=== PATIENT | male | born 1950 | race Caucasian/White ===

== ENCOUNTER 2024-04-23 04:59 | Inpatient (IN) ==
[2024-04-23] MEDS: Albuterol/Ipratropium NEB.SOL (2.5/0.5 MG) 3 ML NEB.SOLN INH ONE (05:08)
[2024-04-23] MEDS ORDERED: Vancomycin 1,000 MG in NS 0.9% 250 ml 250 ML IVPB ONE (05:19)
[2024-04-23] MEDS ORDERED: Acetaminophen IV 1 GM/100ML 1,000 MG/100 ML BAG IV ONE (05:19)
[2024-04-23 05:23] LABS: Hemoglobin 11.7 g/dL (13.2-16.3); Mean Corpuscular Hemoglobin 28.5 pg (27-33); Mean Corpuscular Hgb Conc 32.6 g/dL (31-36); Mean Corpuscular Volume 87.4 fL (80-97); Mean Platelet Volume 8.3 fL (7.5-11.2); Platelet Count 391 10^3/uL (150-450); Red Blood Count 4.12 10^6/uL (4.06-5.63); Red Cell Distribution Width 15.7 % (12-17); White Blood Count 12.8 10^3/uL (3.6-10.2)
[2024-04-23 05:26] LABS: PCO2 Arterial 74 mmHg (35-45)
[2024-04-23 05:28] LABS: Activated Partial Thrombo Time 33.5 seconds (26.0-38.0); INR 1.13 (0.85-1.14)
[2024-04-23] MEDS: Acetaminophen IV 1 GM/100ML 1,000 MG/100 ML BAG IV ONE (05:29)
[2024-04-23] MEDS: Dexamethasone IV 4 MG/ML VIAL 1 ml VIAL IV SLOW PU ONE (05:40)
[2024-04-23] MEDS: Piperacillin/Tazobac 3.375 BAG 3.375 GM/100 ML BAG IV ONE (05:40)
[2024-04-23] MEDS: Lactated Ringers 1000 ml BAG 1,000 ML IV ONE (05:41)
[2024-04-23] MEDS: Vancomycin 1,250 MG in NS 0.9% 250 ml 250 ML IVPB ONE (05:56)
[2024-04-23] MEDS ORDERED: Vancomycin per Pharmacy 1 EA NOTE FOLLOW UP SCH (06:00)
[2024-04-23] MEDS ORDERED: Zosyn per Pharmacy NOTE FOLLOW UP SCH (06:00)
[2024-04-23 06:01] LABS: Albumin 4.3 g/dL (3.5-5.7); Albumin/Globulin Ratio 1.9 (1-3); C Reactive Protein 25.62 mg/L (<8.01); Calcium 9.5 mg/dL (8.6-10.3); Creatinine, Serum 1.12 mg/dL (0.67-1.17); Globulin 2.3 g/dL (2-4); Potassium 4.6 mmol/L (3.5-5.0); Total Bilirubin 0.3 mg/dL (0.2-1.0); Total Protein 6.6 g/dL (6.4-8.9); eGFR CKD-EPI 68.5 (>60)
[2024-04-23] MEDS ORDERED: Dextrose 50% Syringe 50 ml 25 GM/50 ML SYRINGE IV PUSH PRN (06:14)
[2024-04-23 06:35] LABS: HDL Cholesterol 79.8 mg/dL; Magnesium 1.8 mg/dL (1.9-2.7); Phosphorus 2.8 mg/dL (2.5-5.0)
[2024-04-23] MEDS: Albuterol 2.5mg/3 ml (0.083%) NEB.SOLN INH ONE (06:40)
[2024-04-23 06:54] LABS: PCO2 Arterial 64 mmHg (35-45); PO2 Arterial 227 mmHg (80-100)
[2024-04-23] MEDS: Magnesium Sulfate 2 gm BAG 2 GM/50 ML BAG IVPB ONE (06:58)
[2024-04-23 07:01] LABS: ABS Eosinophils 0.3 10^3/uL (0.0-0.5); ABS Lymphocytes 0.5 10^3/uL (1.0-4.8); ABS Monocytes 1.1 10^3/uL (0.0-1.1); Lymphocyte % 3.6 %
[2024-04-23 07:59] LABS: Urine Appearance Clear; Urine Bilirubin Negative (Negative); Urine Blood Negative (Negative); Urine Color Light-Yellow; Urine Glucose 4+ (>=1000 mg/dL) (Negative); Urine Ketones Negative (Negative); Urine Nitrite Negative (Negative); Urine Protein Trace (Negative); Urine Urobilinogen Negative (Negative)
[2024-04-23 08:35] LABS: High Sensitivity Troponin 1 Hr 17 pg/mL (<20)
[2024-04-23] MEDS: Nebivolol 2.5 mg TAB (NF) PO SCH (08:54)
[2024-04-23] MEDS: Pantoprazole VIAL 40 MG VIAL IV SCH (08:54)
[2024-04-23] MEDS: Empagliflozin 25 MG TAB PO SCH (08:55)
[2024-04-23] MEDS: Remdesivir 100 mg Vial 200 MG in NS 0.9% 250 ml 210 ML IV ONE (08:56)
[2024-04-23] MEDS: Enoxaparin 40 MG/0.4 ML SYR SUBCUT SCH (08:56)
[2024-04-23] MEDS: Furosemide 20 mg/2 ml IV VIAL IV SLOW PU ONE (09:59)
[2024-04-23] MEDS ORDERED: ZOSYN 3.375 GM Q8H per EXTENDED INFUSION IV SCH (10:00)
[2024-04-23] MEDS: Sulfur Hexaflouride MICROSPHR 25 MG VIAL IV PRN (14:48)
[2024-04-23] MEDS ORDERED: Vancomycin 750 MG in NS 0.9% 250 ML IVPB SCH (18:00)
[2024-04-24] MEDS: Albuterol/Ipratropium NEB.SOL (2.5/0.5 MG) 3 ML NEB.SOLN INH PRN (01:54)
[2024-04-24] MEDS: Dexamethasone IV 4 MG/ML VIAL 1 ml VIAL IV SLOW PU SCH (05:12)
[2024-04-24 06:57] LABS: ABS Lymphocytes 0.7 10^3/uL (1.0-4.8); ABS Monocytes 1.4 10^3/uL (0.0-1.1); ABS Neutrophils 8.2 10^3/uL (1.5-7.6); ABS Nucleated RBC 0.01 10^3/ul; Eosinophil % 0.1 %; Hemoglobin 10.7 g/dL (13.2-16.3); Lymphocyte % 6.9 %; Mean Corpuscular Hemoglobin 29.1 pg (27-33); Mean Corpuscular Hgb Conc 33.4 g/dL (31-36); Mean Corpuscular Volume 87.2 fL (80-97); Mean Platelet Volume 8.3 fL (7.5-11.2); Nucleated Red Blood Cells % 0.1 %/100WBC (0.0-0.8); Platelet Count 321 10^3/uL (150-450); Red Blood Count 3.68 10^6/uL (4.06-5.63); Red Cell Distribution Width 15.5 % (12-17); White Blood Count 10.3 10^3/uL (3.6-10.2)
[2024-04-24 07:35] LABS: Albumin 3.4 g/dL (3.5-5.7); Albumin/Globulin Ratio 1.7 (1-3); Calcium 8.4 mg/dL (8.6-10.3); Creatinine, Serum 0.94 mg/dL (0.67-1.17); Potassium 4.5 mmol/L (3.5-5.0); Total Bilirubin 0.2 mg/dL (0.2-1.0); Total Protein 5.4 g/dL (6.4-8.9); eGFR CKD-EPI 84.5 (>60)
[2024-04-24] MEDS ORDERED: Remdesivir 100 mg Vial 100 MG in NS 0.9% 250 ml 230 ML IV SCH (09:00)
[2024-04-24] MEDS: ZOSYN 3.375 GM Q8H per EXTENDED INFUSION IV SCH (10:19)
[2024-04-24] MEDS: Remdesivir 100 mg Vial 100 MG in NS 0.9% 250 ml 230 ML IV SCH (10:35)
[2024-04-24] MEDS ORDERED: Vancomycin Trough Check NOTE FOLLOW UP ONE (17:30)
[2024-04-24] MEDS: Nystatin TOP POWDER 15 GM BTL TOPICAL SCH (19:48)
[2024-04-25 06:05] LABS: ABS Lymphocytes 0.8 10^3/uL (1.0-4.8); ABS Neutrophils 6.9 10^3/uL (1.5-7.6); Eosinophil % 0.5 %; Hematocrit 31.2 % (38-53); Hemoglobin 10.5 g/dL (13.2-16.3); Lymphocyte % 8.8 %; Mean Corpuscular Hemoglobin 29.1 pg (27-33); Mean Corpuscular Hgb Conc 33.6 g/dL (31-36); Mean Corpuscular Volume 86.8 fL (80-97); Mean Platelet Volume 8.3 fL (7.5-11.2); Platelet Count 327 10^3/uL (150-450); White Blood Count 8.7 10^3/uL (3.6-10.2)
[2024-04-25 06:53] LABS: Albumin 3.4 g/dL (3.5-5.7); Albumin/Globulin Ratio 1.8 (1-3); Calcium 8.4 mg/dL (8.6-10.3); Creatinine, Serum 0.89 mg/dL (0.67-1.17); Globulin 1.9 g/dL (2-4); Magnesium 1.8 mg/dL (1.9-2.7); Potassium 4.3 mmol/L (3.5-5.0); Total Bilirubin 0.3 mg/dL (0.2-1.0); Total Protein 5.3 g/dL (6.4-8.9); eGFR CKD-EPI 89.4 (>60)
[2024-04-25] MEDS: Albuterol 2.5mg/3 ml (0.083%) NEB.SOLN INH PRN (10:24)
[2024-04-26 06:39] LABS: ABS Lymphocytes 0.9 10^3/uL (1.0-4.8); ABS Monocytes 0.9 10^3/uL (0.0-1.1); Eosinophil % 0.3 %; Hematocrit 32.5 % (38-53); Hemoglobin 10.7 g/dL (13.2-16.3); Lymphocyte % 8.8 %; Mean Corpuscular Hemoglobin 28.6 pg (27-33); Mean Corpuscular Volume 86.6 fL (80-97); Mean Platelet Volume 8.2 fL (7.5-11.2); Platelet Count 351 10^3/uL (150-450); Red Blood Count 3.75 10^6/uL (4.06-5.63); Red Cell Distribution Width 15.1 % (12-17); White Blood Count 9.9 10^3/uL (3.6-10.2)
[2024-04-26 07:32] LABS: Albumin 3.6 g/dL (3.5-5.7); Albumin/Globulin Ratio 1.8 (1-3); Calcium 8.6 mg/dL (8.6-10.3); Creatinine, Serum 1.06 mg/dL (0.67-1.17); Magnesium 1.9 mg/dL (1.9-2.7); Potassium 4.2 mmol/L (3.5-5.0); Total Bilirubin 0.3 mg/dL (0.2-1.0); Total Protein 5.6 g/dL (6.4-8.9); eGFR CKD-EPI 73.2 (>60)
[2024-04-26 11:12] VITALS: BP 144/71
== END 2024-04-26 12:40 | disposition home or self-care (01) | DRG 177 ==
LOC: ED 04:59 → EDHOLD 05:36 → SUATTDRO 05:36 → ICU 07:21 → MEDTELE 07:35
PROVIDERS: ADMIT Student in an Organized Health Care Education/Training Program; ATTEND Student in an Organized Health Care Education/Training Program